=== PATIENT | female | born 1990 | race Hispanic/Latino ===

== ENCOUNTER 2016-09-19 07:12 | Inpatient (IN) | payer MEDICAID ==
[~2016-09-19] VITALS: Ht 142.2 cm; Wt 66.2 kg
[2016-09-19] MEDS ORDERED: Lactated Ringer's 1,000 ML IV SCH ×2 (08:01→08:52)
[2016-09-19] MEDS ORDERED: Oxytocin 10 Unit/mL Inj IM PRN ×3 (08:05→12:35)
[2016-09-19] MEDS ORDERED: Hemorrhage Kit, Post Partum XX ONE ×3 (08:05→12:35)
[2016-09-19] MEDS ORDERED: Methylergonovine 0.2 mg/mL Inj IM PRN ×3 (08:05→12:35)
[2016-09-19] MEDS ORDERED: Sodium Citrate-Citric Acid 15 mL Solution PO SCH (08:05)
[2016-09-19] MEDS ORDERED: Carboprost 250 mCg/mL Inj IM PRN ×3 (08:05→12:35)
[2016-09-19 08:11] LABS: Mean Corpuscular Hemoglobin 29.9 pg (27.0-35.0); Mean Corpuscular Volume 87.8 fL (81-100)
[2016-09-19] MEDS ORDERED: EPHEDrine/NS 5 mg/mL 5 mL Syringe ONE (08:36)
[2016-09-19] MEDS ORDERED: Bupiv-Spinal 0.75%/Dex 8.25% 2 mL Inj ONE (08:36)
[2016-09-19] MEDS ORDERED: MetoCLOpramide 5 mg/mL 2 mL Inj ONE (08:36)
[2016-09-19] MEDS ORDERED: Phenylephrine/NS-PF 100 mCg/mL 5 mL Syringe IVPUSH ONE (08:36)
[2016-09-19] MEDS ORDERED: Oxytocin 10 Unit/mL Inj ONE (08:36)
[2016-09-19] MEDS ORDERED: Lidocaine PF 1% 30 mL Inj ONE (08:36)
[2016-09-19] MEDS ORDERED: Ondansetron 2 mg/mL 2 mL Inj ONE (08:36)
[2016-09-19] MEDS ORDERED: CeFAZolin Inj 2 GM in IV Premix 1 EACH IV ONE (08:55)
[2016-09-19] MEDS ORDERED: PREN1TAB25 PO (09:11)
[2016-09-19] MEDS: Sodium Citrate-Citric Acid 15 mL Solution PO SCH ×2 (09:20→09:21)
[2016-09-19] MEDS ORDERED: Morphine PF 1 mg/mL 10 mL Inj ONE (09:29)
--- NOTE | 2016-09-19 10:07 | HP ---
[address] [address] HISTORY AND PHYSICAL PATIENT: JAEL NEWTON : 1990 MR#: [id number] ADMIT: 09/19/2016 JOB ID: [id number] ADMITTED DIAGNOSIS: Admitted for elective repeat section. HISTORY OF PRESENT ILLNESS: The patient is 26-year-old, 2, para 1-0-0-1 at 39 weeks 1 day gestational age by 9 week ultrasound, who is presenting for elective repeat section today. complicated with the followin. 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 No records available. 2. Neurocysticercosis with radiating pain. She is following up with the [facility]. The plan is for MRI . Normal anatomy. 3. History of Allen's palsy with prior . 4. Nausea and vomiting in . 5. GBS bacteriuria. The patient denied any leakage of fluid, vaginal bleeding, contractions. Feels movements. PAST OBSTETRICAL HISTORY: 2015 primary section in [place] at term. The patient mentioned the was due to Allen palsy. No records available and the current . PAST GYNECOLOGIC HISTORY: No history of STDs. No history of abnormal Pap smears. PAST MEDICAL HISTORY: 1. Anemia. 2. Neurocysticercosis. 3. Allen palsy. PAST SURGICAL HISTORY: section x1. MEDICATIONS: vitamins, iron and vitamin C. ALLERGIES: No known drug allergies. SOCIAL HISTORY: Denied any alcohol consumption. Denied any drugs of abuse. Denied any cigarette smoking. ADMISSION LABORATORIES: H and H is 12, 35.2. Platelets are 103. White blood count is 6.3. LABORATORIES: B positive,Antibody negative. Urine cultures negative. One hour glucose screen is 118. UA is negative. GC chlamydia cultures negative. HIV nonreactive. Hepatitis B surface antigen nonreactive. Rubella immune. Antibody negative. PHYSICAL EXAMINATION: The patient is alert, oriented x3. Vital signs are 117/67 for blood pressure. Respirations are 18. Pulse is 72. Heart is regular rate and rhythm. Positive S1, S2. Lungs clear to auscultation bilaterally. Abdomen: Gravid uterus, nontender. Hypertrophic scar. Lower extremities: No calf tenderness appreciated bilaterally. heart tracing is showing a baseline of 140 beats per minute, positive accelerations, no decelerations, moderate variability, category 1 heart tracing. ASSESSMENT AND PLAN: The patient is 26-year-old 2, para 1-0-0-1, at 39 weeks and 1 day gestational age by 9 week ultrasound, who is admitted with prior section in [place]. No records available. The patient declined TOLAC. 1. Will proceed with a repeat section and scar revision for hypertrophic scar. Consent signed. All questions answered. 2. Antibiotic prophylaxis. 3. Sequential compression devices for deep venous thrombophlebitis prophylaxis. 4. GBS bacteriuria. Principal Secretary notified. All of the above discussed in details with the patient through hospital provided certified court interpreter. The patient agreed to the plan. All questions answered. BRENT
--- NOTE | 2016-09-19 10:23 | PCM.HPANE ---
Patient Data Surgeon Admitting Provider:Any Carlisle MD Attending Provider:Any Carlisle MD Primary Care Physician:Xuan Other Provider:Rubio Mayen Anesthesia Reason for Visit Repeat Repeat Ht/WT & BMI Body Mass Index Allergies Coded Allergies: No Known Allergies (Unverified , 09/19/16) Past Anesthesia History Anesthesia History: Denies:: Abnormal Airway, Anesthesia Reactions, Difficult Intubation, Fam Anesthesia Reaction, Fam Malignant Hypertherm, Malignant Hyperthermia MRSA MRSA: No Medications Hypertension Medication: No Home Meds Incl Beta Satish: No Reported Medications Vit#96/Ferrous Fum/FA ( Tablet)1 Each Tablet1 Each PO DAILY 09/19/16 History History of ENT Problems?: No Hx of Heart Problems?: No Hx of Respiratory Problem?: No Hx Neurologic Problems?: Yes Neurological History: Positive for:: Headaches (history of Allen's palsy with last , ) Other Neurological Pertinent: Endorses neck and upper back pain. History of neurocysticersosis in [place] and evaluation in [place]. Last seen February of 2016 at [facility] by Dr. Hendricks. No current evidence of active disease or increased ICP. Plan is for MRI post-csection by neurologist in October 2016. Hx of GI Problems?: No Hx of Problems?: No Female Hx: Positive for:: Currently Hx of Psycho/Social Problems?: No Hx Surgeries?: Yes (previous csection in [place]) Hx Any Other Health Problems?: No Hx Alcohol Use: NoHx Substance Use: No Smoking Status: Never Smoker Stop/Bang PAYTON Risk Assessment: Low Risk, <3 Yes Risk Assessment Category Category 1A: Patient has history of documented sleep apnea, and HAS NOT received any narcotic, sedative or anesthesia administration during this stay. Category 1B: Patient has history of documented sleep apnea, and HAS received any narcotic , sedative or anesthesia administration during this stay Category 2: Patient has SUSPECTED Obstructive Sleep Apnea, and HAS received any narcotic , sedative or anesthesia administration during this stay. Category 3: Patient has SUSPECTED Obstructive Sleep Apnea and HAS NOT received narcotic, sedative or anesthesia administration during this stay. Category 4: Outpatient in Procedural Areas with known sleep apnea or who screen positive for High Risk via the STOP/BANG questionnaire. Exam Exam General Appearance: Alert, Oriented X3, Cooperative, No Acute Distress HEENT/AIRWAY: MP 2 Lungs: Clear to Auscultation, Normal Air Movement Heart: Exam Unremarkable, Regular Rate/Rhythm, No Murmurs/Rubs/Gallops Meds/Labs/Diagnostics Labs Test 09/19/16 07:45 White Blood Count 6.3th/mm3 (3.8-10.1) Red Blood Count 4.01mil/mm3 (3.90-5.20) Hemoglobin 12.0g/dL (12.0-15.6) Hematocrit 35.2% (35.0-46.0) Mean Corpuscular Volume 87.8fL (81-100) Mean Corpuscular Hemoglobin 29.9pg (27.0-35.0) Mean Corpuscular Hemoglobin Concent 34.1% (32.0-37.0) Red Cell Distribution Width 13.2% (12.3-15.4) Platelet Count 103bil/L (150-400) Plan Impression Patient chart reviewed, patient interviewed and anesthestic plan with risks, benefits, and alternatives discussed, and informed consent obtained. ASA Physical Status: ASA2 Mod Systemic Disease Anesthetic Plan: SAB Bene/Risks/Altern/Consents: Yes (Discussed plan with patient via emergency medical technician.) HP Complete Prior to Induction: Yes Other After evaluating the patient and noting no current symptoms of radiculopathy or signs of elevated ICP (nor history of) and discussing the patient's imaging over the phone with the neurology resident reviewing the imaging (no mass effect lesion, lumbar lesions or signs of intracranial hypertension, elect to proceed with spinal anesthesia. Dameon Urbina MD Sep 19, 2016 08:38
[2016-09-19] MEDS ORDERED: HYDROmorphone 1 mg/mL Inj IVPUSH PRN (11:10)
[2016-09-19] MEDS ORDERED: MetoCLOpramide 5 mg/mL 2 mL Inj IVPUSH PRN (11:10)
[2016-09-19] MEDS ORDERED: Morphine PF 1 mg/mL 10 mL Inj INTRATHEC ONE (11:10)
[2016-09-19] MEDS ORDERED: fentaNYL-PF 50 mCg/mL 2 mL Inj IVPUSH PRN (11:10)
[2016-09-19] MEDS ORDERED: Lactated Ringer's 1,000 ML IV PRN (11:10)
[2016-09-19] MEDS ORDERED: EPHEDrine Sulfate 50 mg/mL Inj IVPUSH PRN (11:10)
[2016-09-19] MEDS ORDERED: Ondansetron 2 mg/mL 2 mL Inj IVPUSH PRN (11:10)
[2016-09-19] MEDS ORDERED: Atropine 0.4 mg/mL Inj IV PRN (11:10)
--- NOTE | 2016-09-19 12:24 | PCM.ANEP1 ---
Post Anesthesia Phase 1 PACU Phase 1 Assessment Vital Signs BP: 116/67 HR:61 SpO2: 100% T: 36.4 Anesthetic Administered: SAB Level of Alertness: Awake, talking MORGAN's with Equal Strength: No (residual SAB) Pain: No Nausea or Vomiting: No Lungs: Clear to Auscultation, Normal Air Movement Dermatome Level: T6 (Xyphoid Process) Dameon Urbina MD Sep 19, 2016 12:24
[2016-09-19] MEDS: Lactated Ringer's 1,000 ML IV SCH ×2 (12:33→18:55)
[2016-09-19] MEDS ORDERED: hydrOXYzine Pamoate 25 mg Capsule PO PRN (12:35)
[2016-09-19] MEDS ORDERED: LANOlin HPA 7 Gm Ointment TOPICAL PRN (12:35)
[2016-09-19] MEDS ORDERED: Oxytocin 30 Units/500 mL LR 30 UNITS in IV Premix 1 EACH IV PRN (12:35)
[2016-09-19] MEDS ORDERED: Sodium Chloride LOK Flush 10 mL Syringe IVFLUSH PRN (12:35)
[2016-09-19] MEDS ORDERED: Acetaminophen IV 1,000 MG in IV Premix 1 EACH IV PRN (12:35)
--- NOTE | 2016-09-19 12:51 | PCM.ANEP2 ---
Post Anesthesia Evaluation ASA/CMS Post Anesthesia VS in Patient's Normal Range?: Yes Resp Stable; Airway Patent?: Yes CV Function & Hydration Stable: Yes Mental Status Recovered?: Yes Pain control Satisfactory?: Yes N/V Control Satisfactory?: Yes Dameon Urbina MD Sep 19, 2016 12:51
--- NOTE | 2016-09-19 13:19 | OP ---
[address] [address] OPERATIVE REPORT PATIENT: JAEL NEWTON : 1990 MR#: [id number] ADMIT: 09/19/2016 JOB ID: [id number] DATE OF SURGERY: 09/19/2016 PREOPERATIVE DIAGNOSIS(ES): 1. A 26-year-old, 2, para 1-0-0-1 at 39 weeks and 1 day gestational age by 9 week ultrasound, with history of prior section in [place] for Allen's palsy. No records available. The patient declined TOLAC. The patient opted for repeat section and scar revision for hypertrophic scar. 2. Neurocysticercosis with radiating pain. She is following up with [facility] neurologist Dr. Meredith. MRI was the plan and restart gabapentin . 3. GBS bacteriuria. 4. History of Allen's palsy with prior . 5. Nausea and vomiting of , resolved. POSTOPERATIVE DIAGNOSIS(ES): 1. A 26-year-old, 2, para 1-0-0-1 at 39 weeks and 1 day gestational age by 9 week ultrasound, with history of prior section in [place] for Allen's palsy. No records available. The patient declined TOLAC. The patient opted for repeat section and scar revision for hypertrophic scar. 2. Neurocysticercosis with radiating pain. She is following up with [facility] neurologist Dr. Meredith. MRI was the plan and restart gabapentin . 3. GBS bacteriuria. 4. History of Allen's palsy with prior . 5. Nausea and vomiting of , resolved. PROCEDURE: Repeat low transverse section with scar revision. SURGEON: Any Carlisle MD. DOCUMENTATION WRITER: Vignesh Jordan MD ANESTHESIA: Spinal. ESTIMATED BLOOD LOSS: 500 mL. INTRAVENOUS FLUIDS: 1600 mL of crystalloid. URINE OUTPUT: 200 mL of clear urine. COMPLICATIONS: None. FINDINGS: Single viable male with Apgars 8/9, weight of 3348 g, in right occiput anterior presentation. Placenta expressed. Normal fallopian tubes and ovaries bilaterally. SPECIMEN: Expressed placenta, disposed. DESCRIPTION OF PROCEDURE: The risks, benefits, and alternatives of the procedure were discussed with the patient and informed consent signed. The patient moved to the OR with IV running. After anesthesia was found to be adequate, the patient was prepped and draped in the normal sterile fashion in dorsal supine position with a leftward tilt. A Pfannenstiel skin incision was made with a scalpel at the site of the prior incision after completely dissecting off the hypertrophic scar with the scalpel. The skin incision carried down to underlying rectus fascia with a scalpel, the fascial incision extended bilaterally with Turner scissors. Inferior aspect of the fascial incision was grasped with Dipak clamps, elevated, tented up, and rectus muscle dissected off bluntly. Attention was then turned to the superior aspect of fascial incision, which in a similar fashion was grasped with Dipak clamps, tented up, and the rectus muscle dissected off bluntly and sharply. Rectus muscles were then in the midline. Peritoneum identified, entered bluntly with traction/counter traction. Upon good visualization of the bladder, the peritoneal incision was extended superiorly and inferiorly. Bladder blade inserted. Vesicouterine peritoneum identified. Entered sharply with the Metzenbaum scissors. Bladder flap created digitally. Bladder blade reinserted. Uterus incised in midline with a scalpel. Uterine incision extended bilaterally with bandage scissors. head delivered with clear amniotic fluid. Baby was found to be in right occiput anterior position. Head delivered, followed by the shoulders and the rest of the body. Delayed cord clamping allowed for 60 seconds. Cord clamped and cut. Infant handed off to awaiting nurse. Placenta expressed by compressing on the fundus. Completely removed; intact. Uterus exteriorized. Cleared of all clots and debris. The uterine incision repaired in two layers, first is a continuous locked fashion of 0-Vicryl suture and the second layer of imbrication with 0-Vicryl suture. A few [id number] of 2-0 chromic were added at the hysterotomy level to assure hemostasis. Suction irrigation confirmed hemostasis. The uterus was returned back to the abdomen. All instruments and laps were removed from the patient's abdomen. The muscle approximated in midline with interrupted sutures of 2-0 chromic. Fascia closed in a continuous fashion of 0-Vicryl suture. Subcutaneous layer closed in interrupted fashion with 2-0 chromic suture. The skin closed in subcuticular fashion with 4-0 Vicryl suture. Steri-Strips and pressure dressing applied. The patient tolerated the procedure well. Sponge, lap, needle, and instrument counts were correct x2. The patient was recovered in a stable condition. Dr. Carlisle was present and scrubbed for the entire procedure. BRENT
[2016-09-20] MEDS: oxyCODONE-Acetamin 5-325 mg Tablet PO PRN ×3 (00:10→20:36)
[2016-09-20 06:31] LABS: Mean Corpuscular Hemoglobin 29.5 pg (27.0-35.0); Mean Corpuscular Volume 89.2 fL (81-100)
[2016-09-20] MEDS ORDERED: Ascorbic Acid 500 mg Tablet PO SCH (08:00)
[2016-09-20] MEDS: Lactated Ringer's 1,000 ML IV SCH ×2 (12:33→20:33)
--- NOTE | 2016-09-20 18:18 | PCM.PNOBPP ---
Subjective Date of Service Sep 20, 2016 Post : Repeat Ceserean Delivery Lochia: Normal Pain Management: PO pain meds, Good Pain Control Gastrointestinal: Good Appetite, No N/V Postop Activity: Ambulating Independently Group B Strep Results: Positive Rubella: Immune Blood Type: B (positive ) RH Type: Positive Labs Laboratory Tests 09/20/16 06:05: White Blood Count 8.9, Red Blood Count 3.52, Hemoglobin 10.4, Hematocrit 31.4, Mean Corpuscular Volume 89.2, Mean Corpuscular Hemoglobin 29.5, Mean Corpuscular Hemoglobin Concent 33.1, Red Cell Distribution Width 13.1, Platelet Count 145 Exam Vital Signs Vital Signs 112/66, 74, 16, 99% on RA, T 36.5 Vital Signs: VS reviewed, stable Exam Abdomen: Fundus firm Extremities: No edema Lungs: Clear to Auscultation Heart: Regular Rate/Rhythm, Normal S1, Normal S2 General: Alert, Oriented X3 Surgical Wound : Incision General Appearence: Steri Strips, Sutures, Intact, Well Approximated, Incision Healing, No Erythemia, No Discharge, No Inflammatory Changes OB Post Assessment/Plan Assessment A 26-year-old, 2, para 2-0-0-2 1. S/P RCD at 39 weeks and 1 day gestational for history of prior section in [place] for Allen's palsy. No records available. The patient declined TOLAC. 2. Mild anemia Hct 3, started on iron daily . Problem list during : 2. Neurocysticercosis with radiating pain. She is following up with [facility] neurologist Dr. Meredith. MRI was the plan and restart gabapentin . Patient denies pain and denies need for gabapentin will deffer starting gabapentin to neurology follow up as out patient. 3. GBS bacteriuria. 4. History of Allen's palsy with prior . 5. H/O Nausea and vomiting of , resolved. Post plan: Continue routine post care, Discharge home tomorrow Vignesh Jordan MD Sep 20, 2016 18:17
[2016-09-21] MEDS: oxyCODONE-Acetamin 5-325 mg Tablet PO PRN ×2 (02:45→12:18)
[2016-09-21] MEDS ORDERED: Ascorbic Acid 500 mg Tablet PO SCH (08:30)
--- NOTE | 2016-09-21 09:37 | PCM.DIOB ---
Obstetrical Disch Instruction Dates of Hospitalization Date of Hospital Admission Sep 19, 2016 at 07:12 Providers Admitting Physician: Any Carlisle MD Primary Care Physician: Xuan Attending Physician: Any Carlisle MD Discharge Diagnosis Discharge Diagnosis status post elective repeat low transverse section Problems: Diet Discharge Diet: No restrictions Activity Discharge Activity-General: Pelvic Rest for 6 weeks, Activity as pain allows, No lifting >10 pounds for 4-6 weeks Dressing and Incisional Care Dressing Care: Keep dressing clean, dry & intact Hygiene: May shower Follow Up Plan Follow-up appointment: Weeks (2) Call your provider for: Fever or Chills, Shortness of breath, Heavy vaginal bleeding, Red painful breasts Inge Sams MD Sep 21, 2016 09:37
[2016-09-21] MEDS ORDERED: FERR-74 PO (09:39)
[2016-09-21] MEDS ORDERED: DOCU-41 PO (09:39)
[2016-09-21] MEDS ORDERED: IBUP800T28 PO (09:39)
[2016-09-21] MEDS ORDERED: OXYC1TAB24 PO (09:39)
[2016-09-21 09:55] VITALS: BP 103/59; PULSE 71; RESP 16
--- NOTE | 2016-09-21 10:04 | DIS ---
[address] [address] DISCHARGE SUMMARY PATIENT: AJEL NEWTON : 1990 MR#: [id number] ADMIT: 09/19/2016 JOB ID: [id number] DIS: ADMISSION DIAGNOSES: 1. A 39 + 1 week intrauterine , presenting for an elective repeat low transverse section. 2. History of x1 for Allen palsy in [place]. 3. Neurocysticercosis. 4. Group B streptococcus bacteriuria. DISCHARGE DIAGNOSES: 1. A 39 + 1 week intrauterine , presenting for an elective repeat low transverse section. 2. History of x1 for Allen palsy in [place]. 3. Neurocysticercosis. 4. Group B streptococcus bacteriuria. PROCEDURES PERFORMED: Repeat low transverse section on September 19, 2016. REASON FOR ADMISSION: This is a 26-year-old, G2, P 1-0-0-1 female who presented at 39 + 1 week gestational age for a planned elective repeat low transverse section. Her was complicated by history of x1 for Allen palsy in [place] and neurocysticercosis, following with [facility]. She also had GBS positive bacteriuria. She presented on the morning of the to undergo the planned stated procedure. LABORATORY DATA: Showed blood type of B positive, antibody screen negative, rubella immune, hep B surface antigen negative, RPR nonreactive, HIV negative. Risks, benefits and alternatives were discussed with her prior to the procedure. HOSPITAL COURSE: The patient was admitted on the to undergo her elective repeat low transverse section. Please see the operative report for full details regarding this. This was uncomplicated. By postoperative day#1, her pain was well controlled. She was tolerating a regular diet, voiding and ambulating well on her own. By postoperative day #2, she was passing flatus. Had no other questions or concerns. Her hemoglobin did drop down to 10.4 on postop day one, down from 12.0 preoperatively, and ferrous sulfate was started for her. By postoperative day #2, she was meeting all postoperative goals and deemed stable for discharge at this time PHYSICAL EXAMINATION ON THE DAY OF DISCHARGE: Blood pressure is 103/59, heart rate was 71, respiratory rate was 16, temperature was 98.2. In general, she is awake, alert, oriented, comfortable, in no acute distress, lying in bed. Her abdomen is soft, appropriately tender and nondistended, with her fundus firm 1 cm below the umbilicus. Her incision was clean, dry and intact with Steri-Strips in place. Her extremities showed no tenderness or edema. INSTRUCTIONS AT DISCHARGE: The patient was advised to remain at pelvic rest for six weeks including no tampons, douching, or intercourse. She was asked to call with any signs or symptoms of infection including fever greater than 100.5 degrees, severe pain, malodorous vaginal discharge, or bleeding more than one pad per hour. She was asked to return in two weeks for an incision check and again in six weeks for a routine check. She will be follow up with for her neurocysticercosis She was discharged home with: 1. Percocet 5/325, 1-2 tabs p.o. q.4 h. p.r.n. pain, dispensed #30. 2. Ibuprofen 800 mg p.o. t.i.d. p.r.n. pain. 3. She was asked to continue: a. vitamins. b. Iron pills. All questions and concerns of the patient were answered prior to discharge. She is deemed stable for discharge on postoperative day #2. BRENT
== END 2016-09-21 13:14 | disposition home or self-care (01) | DRG 766 ==
LOC: MERGE 07:12 → FBC 07:12 → EDSTATUS 09:15
PROVIDERS: ADMIT Obstetrics & Gynecology; ATTEND Obstetrics & Gynecology
PROC: 10D00Z1 Extraction of Products of Conception, Low, Open Approach (ICD-10-PCS; principal; 2016-09-19 09:15)
DX: O82 Encounter for cesarean delivery without indication (principal); O99.820 Streptococcus B carrier state complicating pregnancy; O34.211 Maternal care for low transverse scar from previous cesarean delivery; Z3A.39 39 weeks gestation of pregnancy; Z37.0 Single live birth